=== PATIENT | male | born 1965 | race Two or more races ===

== ENCOUNTER → 2021-06-25 | Emergency (ER) | payer OTHER ==
[~2021-06-25] VITALS: Ht 180.3 cm; Wt 116.1 kg
[~2021-06-25] MED LIST: GLUMETZA500 MG PO
== END | disposition home or self-care (01) ==
LOC: ER 14:15
DX: S01.02XA Laceration with foreign body of scalp, initial encounter (principal); W18.09XA Striking against other object with subsequent fall, initial encounter; Y93.89 Activity, other specified; Y92.69 Other specified industrial and construction area as the place of occurrence of the external cause; Y99.8 Other external cause status